=== PATIENT | male | born 1980 | race Caucasian/White ===

== ENCOUNTER 2016-10-22 16:29 | Emergency (ER) | payer MEDICAID, OTHER ==
[~2016-10-22] VITALS: Ht 177.8 cm; Wt 100.0 kg
[2016-10-22 16:35] VITALS: BP 117/71; PULSE 73; RESP 22; TEMP 98.5; O2SAT 98
--- NOTE | 2016-10-22 16:42 | PD ---
Physical Exam Time Seen by Provider: 16:41 Narrative 36 y/o male with R eye pain, fbs. Vital signs reviewed. Seen at triage desk. Awaiting bed placement. Data Data Last Documented VS Vital Signs Date Time Temp Pulse Resp B/P Pulse Ox O2 Delivery O2 Flow Rate FiO2 10/22/16 16:35 98.5 73 22 117/71 98 MDM Medical Record Reviewed: Yes Supervised Visit with HORTENCIA: No Jaylon Akers October 22, 2016 16:42
[2016-10-22] MEDS ORDERED: ERYTOIN10 RIGHT EYE (17:17)
[2016-10-22] MEDS ORDERED: IBUP800T23 PO (17:17)
--- NOTE | 2016-10-22 17:18 | PD ---
HPI Chief Complaint: Foreign Body Time Seen by Provider: 17:14 Travel History International Travel<30 days: No Contact w/Intl Traveler<30days: No Traveled to known affect area: No History of Present Illness HPI 36-year-old male presents emergency Department with complaint of a foreign body that he can see in his right eye. 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 Reports clear drainage. Denies change in vision. Denies fever, vomiting. Has attempted to remove it but it doesn't move so he knew he needed to come in to be seen. Has no other medical complaints. No known allergies. No other modifying factors or associated signs and symptoms. PFSH Past Medical History Medical History: Denies Significant Hx Diminished Hearing: No Tetanus Vaccination: > 5 Years Past Surgical History Surgical History: No Previous Surgery Social History Alcohol Use: No Tobacco Use: Yes (PPD) Substance Use: No Allergies-Medications (Allergen,Severity, Reaction): Coded Allergies: No Known Allergies (Unverified , 10/22/16) Reported Meds & Prescriptions Reported Meds & Active Scripts Active Lortab (Hydrocodone-Acetaminophen) 5-325 Mg Tab 1 Tab PO Q4H PRN Ibuprofen 800 Mg Tab 800 Mg PO Q6HR PRN Erythromycin Opth Oint 5 Mg/Gm Oint 1 Applic RIGHT EYE QID Review of Systems Except as stated in HPI: all other systems reviewed are Neg Physical Exam Narrative GENERAL: Well-nourished, well-developed male patient, in no acute distress SKIN: Warm and dry. HEAD: Atraumatic. Normocephalic. EYES: Pupils equal and round at 3 mm with brisk reaction. PERRLA. EOMI. Right lid eversion with no foreign body noted. Penetrated foreign body noted at approximately the 12 o'clock position over the iris. Right eye with mild scleral erythema and without lid edema. No orbital tenderness, erythema or cellulitis. Right eye without photophobia. No consensual photophobia. No scleral icterus. Clear drainage. Erazo lamp exam reveals foreign body at the 12:00 position. ENT: Mucosa pink and moist. Airway patent. NECK: Trachea midline. CARDIOVASCULAR: Regular rate. RESPIRATORY: No accessory muscle use. GASTROINTESTINAL: Rounded. NEUROLOGICAL: Awake and alert. Oriented 3. No obvious cranial nerve deficits. Motor grossly within normal limits. Normal speech. PSYCHIATRIC: Appropriate mood and affect; insight and judgment normal. Data Data Last Documented VS Vital Signs Date Time Temp Pulse Resp B/P Pulse Ox O2 Delivery O2 Flow Rate FiO2 10/22/16 16:35 98.5 73 22 117/71 98 Orders Mandatory Outpatient Referral (10/22/16 17:18) Proparacaine 0.5% Opth Soln (Alcaine 0.5 (10/22/16 17:30) Ibuprofen (Motrin) (10/22/16 17:45) MDM Medical Decision Making Medical Screen Exam Complete: Yes Emergency Medical Condition: Yes Medical Record Reviewed: Yes Differential Diagnosis Foreign body, corneal abrasion, penetrated foreign body Narrative Course 36-year-old male with penetrated foreign body to his right eye at approximately the 12 o'clock position over the iris. Attempted to remove the foreign body without success. 1723: Callout to ophthalmology. 1739: I spoke with Dr. Banegas, private duty rn, and she recommended for the patient to follow-up in her office tomorrow. I did to her outpatient referral was entered as the patient does not have insurance. Erythromycin, ibuprofen, Lortab prescribed for home. Instructed patient to follow up with private duty rn tomorrow morning. Patient verbalizes understanding and agreement with treatment plan. Patient is medically cleared and stable for discharge. Discussed reasons to return to the emergency department. Instructed patient to follow up with primary care provider. Patient agrees with treatment plan. The patients vital signs are stable and the patient is stable for outpatient follow-up and treatment. Patient discharged home, stable and in no acute distress. Diagnosis Primary Impression: Penetration of right eyeball with foreign body Qualified Code: S05.51XA - Penetration of right eyeball with foreign body, initial encounter Referrals: Snehal Banegas MD[facility] Patient Instructions: Corneal Abrasion (ED), Eye Foreign Body (ED), General Instructions Departure Forms: Tests/Procedures, Work Release Enter return to work date: October 24, 2016 Additional Instructions: Ibuprofen or Tylenol as directed and as needed to reduce pain Do not patch the eye Do not rub the eye Refrigerated eye drops as needed to reduce pain Cool compresses to the eye as needed to reduce pain Follow-up with ophthalmology tomorrow; 10/23/2016; Dr. Snehal Banegas, private duty rn, information is provided in her discharge instructions; call her office in the morning and make an appointment Primary care provider Return to the emergency department immediately, particularly if development of redness and pain to the orbital of the right eye Med/Other Pt SpecificInfo: Prescription(s) given Scripts Hydrocodone-Acetaminophen (Lortab)5-325 Mg Tab1 Tab PO Q4H PRN (PAIN) #10 TAB Ref 0 Prov:Teresa Malik MD 10/22/16 Ibuprofen 800 Mg Tcc354 Mg PO Q6HR PRN (PAIN) #30 TAB Ref 0 Prov:Emani Conteh 10/22/16 Erythromycin Opth Oint 5 Mg/Gm Oint1 Applic RIGHT EYE QID #1 TUBE Ref 0 Prov:Emani Conteh 10/22/16 Disposition: 01 DISCHARGE HOME Condition: Stable Emani Conteh October 22, 2016 17:18
[2016-10-22] MEDS ORDERED: PROPARACAINE HCL 0.5% OPHT SOLN 15 ML BTL EACH EYE ONE (17:30)
[2016-10-22] MEDS ORDERED: HYDR-3533 PO (17:44)
[2016-10-22] MEDS ORDERED: IBUPROFEN 800 MG TAB PO ONE (17:45)
[2016-10-25] MEDS ORDERED: ERYTOIN10 RIGHT EYE (10:11)
[2016-10-31] MEDS ORDERED: NEOM0.1S4 RIGHT EYE (09:46)
== END 2016-10-22 18:15 | disposition home or self-care (01) ==
LOC: NEPK 16:29
DX: S05.51XA Penetrating wound with foreign body of right eyeball, initial encounter (principal); F17.210 Nicotine dependence, cigarettes, uncomplicated; W27.8XXA Contact with other nonpowered hand tool, initial encounter; Y93.89 Activity, other specified; Y92.9 Unspecified place or not applicable; Y99.8 Other external cause status
CPT/HCPCS: 65220